=== PATIENT | female | born 1975 | race Caucasian/White ===

== ENCOUNTER 2016-12-28 13:41 | Emergency (ER) | payer OTHER ==
[~2016-12-28] VITALS: Ht 165.1 cm; Wt 72.0 kg
[2016-12-28] MEDS ORDERED: LIDODERM 5% P1 PATCH TD (15:36)
[2016-12-28 15:44] VITALS: BP 144/90
== END 2016-12-28 15:45 | disposition home or self-care (01) ==
LOC: EME 13:41
DX: M53.3 Sacrococcygeal disorders, not elsewhere classified (principal); G80.9 Cerebral palsy, unspecified; G40.909 Epilepsy, unspecified, not intractable, without status epilepticus; R26.2 Difficulty in walking, not elsewhere classified
CPT/HCPCS: 72220; 99281; 99283